=== PATIENT | female | born 1960 | race Caucasian/White ===

== ENCOUNTER → 2017-12-26 | Outpatient (CLI) | payer OTHER ==
[~2017-12-26] MED LIST: CENTRUM SILVER1 EAC4 PO; COLACE100 MG PO; FLEXERIL PO; IBUPROFEN; IBUPROFEN 600600 M1 PO; LIDODERM 5%1 PATCH TOP; MOTRIN; MS CONTIN15 MG PO; NORCO 5-325 TA1 EACH PO; ONDANSETRON HCL4 M2 PO; OXYCODONE HCL15 MG PO; OXYCONTIN10 M1 PO; PERCOCET 10-321 EACH PO; PERCOCET 5-3251 EACH PO; PERCOCET 7.5-51 EACH PO; PRILOSEC 20 MG20 MG PO; PRILOSEC20 MG PO; RELAFEN500 MG PO; ROBAXIN 750 MG750 MG PO; TRAMADOL 50 MG50 MG PO; VICODIN 5-5001 EACH PO
== END ==
LOC: RAD 09:23
DX: M41.84 Other forms of scoliosis, thoracic region (principal); M47.894 Other spondylosis, thoracic region

== ENCOUNTER → 2018-08-23 | Outpatient (CLI) | payer OTHER | LOC: RAD 10:22 | DX: S32.010D Wedge compression fracture of first lumbar vertebra, subsequent encounter for fracture with routine healing (principal); M47.816 Spondylosis without myelopathy or radiculopathy, lumbar region; Z90.49 Acquired absence of other specified parts of digestive tract; W19.XXXD Unspecified fall, subsequent encounter ==

== ENCOUNTER → 2019-06-24 | Outpatient (CLI) | payer OTHER | LOC: RAD 14:45 | DX: M54.6 Pain in thoracic spine (principal); M43.22 Fusion of spine, cervical region ==